=== PATIENT | male | born 1955 | race Caucasian/White ===

== ENCOUNTER 2021-01-03 16:35 | Observation (INO) | payer OTHER, SELFPAY ==
[2021-01-03 17:29] LABS: #Basophils 0.1 10x3/uL (0.0-0.2); #Eosinphils 0.1 10x3/uL (0.0-0.5); #Monocytes 0.3 10x3/uL (0.0-1.1); #Neutrophils 2.7 10x3/uL (1.5-8.4); %Basophils 1.1 % (0.0-2.0); %Eosinophils 1.9 % (0.0-6.0); %Lymphocytes 40.3 % (18.0-47.0); %Monocytes 6.2 % (0.0-10.0); %Neutrophils 50.1 % (40.0-75.0); ALT (SGPT) 82 U/L (8-55); AST (SGOT) 104 U/L (5-34); Albumin 3.3 g/dL (3.4-4.8); Alkaline Phosphatase 71 U/L (40-110); Anion Gap 20 mmol/L (10-20); BUN (Urea Nitrogen) 9 mg/dL (8.4-25.7); Bilirubin, Total 0.6 mg/dL (0.2-1.2); Calc. Creatinine Clearance 0 mL/min (70-130); Calcium 8.3 mg/dL (7.8-10.44); Carbon Dioxide 20 mmol/L (23-31); Chloride 96 mmol/L (98-107); Globulin 3.8 g/dL (2.4-3.5); Glucose 492 mg/dL (80-115); Hemoglobin 13.7 g/dL (13.5-17.5); Mean Corpuscular HGB CONC 34.2 g/dL (32.0-36.0); Mean Corpuscular Hemoglobin 34.3 pg (27.0-33.0); Mean Corpuscular Volume 100.3 fl (81.2-95.1); Mean Platelet Volume 10.6 fl (7.4-10.4); Platelet Count 212 10x3/uL (150-450); Potassium 3.8 mmol/L (3.5-5.1); Protein, Total 7.1 g/dL (5.8-8.1); RBC Distribution Width 12.1 % (11.5-14.5); Sodium 132 mmol/L (136-145); White Blood Cell (WBC) Count 5.3 10x3/uL (3.5-10.5)
[2021-01-03 17:32] LABS: Actual Bicarbonate (HCO3v) 21 mEq/L (22-28); Base Excess -1.4 mEq/L (-2.0 to +3.0); Calcium, Ionized (venous) 1.01 mmol/L (1.16-1.32); Chloride (VBG) 97 mmol/L (98-106); Hemoglobin (Hb) 14.8 g/dL (12.6-17.4); Potassium (VBG) 5.37 mmol/L (3.70-5.30); Puncture Site Other Site; pH (venous) 7.46 (7.32-7.43)
[2021-01-03 17:38] LABS: Acetaminophen Less than 6.0 mcg/mL (10.0-30.0); Alcohol 241 mg/dL (Less than 10); Salicylate Less than 8.0 mg/dL (15.0-30.0)
[2021-01-03] MEDS ORDERED: Insulin Regular 300 UNITS/3 ML VIAL ONE (18:08)
[2021-01-03 18:33] LABS: Bilirubin Neg (Negative); Blood, Urine Negative (Negative); Clarity Clear (Clear); Glucose, Urine (Dipstick) >=1000 mg/dL (Negative); Ketone, Urine Negative (Negative); Leukocyte Negative (Negative); Nitrite Negative (Negative); Protein, Urine (Dipstick) 30 mg/dl (Neg-Trace); Urobilinogen Normal mg/dL (Less than 2)
[2021-01-03 18:41] LABS: Amphetamine Not Detected (NotDetected); Barbiturates Screen Not Detected (NotDetected); Benzodiazepine Screen Not Detected (NotDetected); Cocaine Metabolite Screen Not Detected (NotDetected); Methadone Not Detected (NotDetected); Methamphetamine Not Detected (NotDetected); Opiate Screen Not Detected (NotDetected); Oxycodone Screen Not Detected (NotDetected); Phencyclidine (PCP) Not Detected (NotDetected); THC/Cannabinoid Screen Not Detected (NotDetected); Tricyclic Screen Not Detected (NotDetected)
[2021-01-03 18:55] LABS: Bacteria/HPF None Seen HPF (None Seen); RBC/HPF None Seen HPF (0-3); Squamous Epithelial 0-3 HPF (0-3); WBC/HPF None Seen HPF (0-3)
[2021-01-03 19:00] LABS: Platelet Clumps SLIGHT; Platelet Morphology Comment Appears Adequate; RBC Morphology Normal
[2021-01-03] MEDS ORDERED: Cefepime 2 GM VIAL ONE (19:51)
[2021-01-03] MEDS ORDERED: Senokot S 8.6-50 MG TAB PO PRN (20:39)
[2021-01-03] MEDS ORDERED: Ondansetron PF 4 MG/2 ML Vial IVP PRN (20:39)
[2021-01-03] MEDS ORDERED: Calcium Carbonate 500 MG ChewTAB PO PRN (20:39)
[2021-01-03] MEDS ORDERED: Dextrose 50% Abboject 50 ML SYRINGE SLOW IVP PRN (20:39)
[2021-01-03] MEDS ORDERED: Dextrose 5% in Water 1,000 ML IV PRN (20:39)
[2021-01-03] MEDS ORDERED: Acetaminophen 325 MG TAB PO PRN (20:39)
[2021-01-03] MEDS ORDERED: HumaLOG 300 UNITS/3 ML VIAL SC PRN (20:39)
[2021-01-03] MEDS ORDERED: Lorazepam 2 MG/ML VIAL SLOW IVP PRN (20:44)
[2021-01-03] MEDS ORDERED: VANCOMYCIN 1.75 GM/350 ML BAG 1.75 GM in Premix Bag 1 BAG IVPB SCH (20:45)
[2021-01-03] MEDS ORDERED: Thiamine HCl 200 MG/2 ML VIAL SLOW IVP SCH (21:00)
[2021-01-03 21:43] LABS: Lactic Acid 3.2 mmol/L (0.5-2.2)
[2021-01-03 21:44] LABS: Phosphorus 2.8 mg/dL (2.3-4.7)
[2021-01-03 21:46] LABS: Anion Gap 17 mmol/L (10-20); BUN (Urea Nitrogen) 7 mg/dL (8.4-25.7); Calc. Creatinine Clearance 0 mL/min (70-130); Calcium 8.1 mg/dL (7.8-10.44); Carbon Dioxide 18 mmol/L (23-31); Chloride 105 mmol/L (98-107); Glucose 273 mg/dL (80-115); Magnesium 1.7 mg/dL (1.6-2.6); Potassium 3.8 mmol/L (3.5-5.1); Sodium 136 mmol/L (136-145)
[2021-01-03 22:41] VITALS: BMI 64.8
[2021-01-03] MEDS: Sodium Chloride 0.9% 1,000 ML IV SCH (23:27)
[2021-01-03] MEDS: Famotidine/PF 20 mg/2ml Vial SLOW IVP SCH (23:45)
[2021-01-04] MEDS ORDERED: Magnesium 2 GM/50 ML 2 GM in Premix Bag 1 BAG IVPB SCH (01:00)
[2021-01-04 04:32] VITALS: TEMP 98.9
[2021-01-04] MEDS: Sodium Chloride 0.9% 1,000 ML IV SCH (05:47)
[2021-01-04] MEDS ORDERED: glipiZIDE 5 MG TAB PO SCH (07:30)
[2021-01-04] MEDS: Famotidine/PF 20 mg/2ml Vial SLOW IVP SCH (08:17)
[2021-01-04 08:57] LABS: Lactic Acid 1.6 mmol/L (0.5-2.2)
[2021-01-04] MEDS ORDERED: Multivitamin W/ Minerals 1 TAB PO SCH (09:00)
[2021-01-04] MEDS ORDERED: Folic Acid 1 MG TAB PO SCH (09:00)
[2021-01-04] MEDS ORDERED: Alogliptin 6.25 MG TAB PO SCH (09:00)
[2021-01-04] MEDS ORDERED: Nicotine 21 MG PATCH TD SCH (09:00)
[2021-01-04] MEDS ORDERED: Enoxaparin Sodium 40 MG/0.4 ML SYRINGE SC SCH (09:00)
[2021-01-04] MEDS ORDERED: Aspirin 81 mg Enteric Coated Tablet PO SCH (09:00)
[2021-01-04 09:01] LABS: ALT (SGPT) 78 U/L (8-55); AST (SGOT) 114 U/L (5-34); Albumin 2.9 g/dL (3.4-4.8); Alcohol Less than 10 mg/dL (Less than 10); Alkaline Phosphatase 63 U/L (40-110); Anion Gap 12 mmol/L (10-20); BUN (Urea Nitrogen) 6 mg/dL (8.4-25.7); Bilirubin, Total 0.9 mg/dL (0.2-1.2); Calc. Creatinine Clearance 293 mL/min (70-130); Calcium 7.8 mg/dL (7.8-10.44); Carbon Dioxide 23 mmol/L (23-31); Chloride 108 mmol/L (98-107); Globulin 3.3 g/dL (2.4-3.5); Glucose 198 mg/dL (80-115); Potassium 3.7 mmol/L (3.5-5.1); Protein, Total 6.2 g/dL (5.8-8.1); Sodium 139 mmol/L (136-145)
[2021-01-04 09:05] LABS: #Eosinphils 0.1 10x3/uL (0.0-0.5); #Monocytes 0.3 10x3/uL (0.0-1.1); #Neutrophils 2.3 10x3/uL (1.5-8.4); %Eosinophils 2.8 % (0.0-6.0); %Lymphocytes 30.1 % (18.0-47.0); %Monocytes 7.6 % (0.0-10.0); %Neutrophils 58.2 % (40.0-75.0); Hemoglobin 13.1 g/dL (13.5-17.5); Mean Corpuscular HGB CONC 34.4 g/dL (32.0-36.0); Mean Corpuscular Hemoglobin 34.1 pg (27.0-33.0); Mean Corpuscular Volume 99.2 fl (81.2-95.1); Platelet Count 161 10x3/uL (150-450); RBC Distribution Width 12.1 % (11.5-14.5); Red Blood Cell (RBC) Count 3.84 10x6/uL (4.32-5.72)
[2021-01-04 09:59] VITALS: BP 148/66
[2021-01-04 16:49] LABS: SARS-CoV-2 PCR by NAA Not Detected (NotDetected)
[2021-01-04 17:12] LABS: Hemoglobin A1c 9.5 % (4.0-6.0)
[2021-01-05] MEDS ORDERED: FLU VACC QS2021-22(65YR UP)/PF 240 MCG/0.7 ML SYRINGE IM ONE (09:00)
== END 2021-01-04 12:08 | disposition home or self-care (01) ==
LOC: CSHERS 16:35 → CSHTELE 21:15
PROVIDERS: ADMIT Student in an Organized Health Care Education/Training Program; ATTEND Hospitalist
DX: F10.129 Alcohol abuse with intoxication, unspecified (principal); F32.A Depression, unspecified; I10 Essential (primary) hypertension; E11.9 Type 2 diabetes mellitus without complications; I25.10 Atherosclerotic heart disease of native coronary artery without angina pectoris; Z95.1 Presence of aortocoronary bypass graft; Z79.82 Long term (current) use of aspirin; E11.10 Type 2 diabetes mellitus with ketoacidosis without coma; E86.0 Dehydration; E87.5 Hyperkalemia; D75.89 Other specified diseases of blood and blood-forming organs; F17.210 Nicotine dependence, cigarettes, uncomplicated; Z20.822 Contact with and (suspected) exposure to COVID-19
CPT/HCPCS: 36415; 36416; 71045; 80053; 80306; 80307; 81003; 81015; 82010; 82550; 82607; 82746; 82805; 83036; 83605; 83735; 84100; 84443; 85025; 93005; 94760; 96365; 96375; 96376; G0378; J0692; J1815; J3370; J3411; J3475; J7050; S0028; U0003; U0005